=== PATIENT | male | born 1960 | race Two or more races ===

== ENCOUNTER 2023-07-14 09:41 | Emergency (ER) | payer OTHER ==
[~2023-07-14] VITALS: Ht 175.3 cm; Wt 88.0 kg
[2023-07-14] MEDS ORDERED: REPATHA SU140 MG/1 M SUBCUTANEO (09:56)
[2023-07-14] MEDS ORDERED: METHYLPREDNISOLONE SOD SUCC 125 MG VIAL IM ONE (12:15)
[2023-07-14] MEDS ORDERED: DIPHENHYDRAMINE HCL 50 MG/ML VIAL 1ML IV ONE (12:15)
== END 2023-07-14 14:49 | disposition home or self-care (01) ==
LOC: ER 09:41
DX: T78.49XA Other allergy, initial encounter (principal); X58.XXXA Exposure to other specified factors, initial encounter